=== PATIENT | female | born 1945 | race Two or more races ===

== ENCOUNTER 2016-03-24 23:17 | Emergency (ER) | payer MEDICARE, OTHER ==
[~2016-03-24] VITALS: Ht 157.5 cm; Wt 56.7 kg
[2016-03-24] MEDS ORDERED: NKM (23:27)
[2016-03-24 23:45] VITALS: BP 116/71
[2016-03-25] MEDS ORDERED: DEBROX15 M1 BOTH EARS (00:36)
[2016-03-25] MEDS ORDERED: ACETAMINOPHEN-1 EAC1 ORAL (00:36)
--- NOTE | 2016-03-25 00:41 | Emergency Room Report ---
History of Present Illness General Chief Complaint: Pain Source: Patient, Family Member Present Illness HPI 71 YO F with 2 complaints: 1) Right ankle pain since tonight. No trauma. No history of gout. +history of DM. Didnt take any thing for pain. No fever/chills, swelling. 2) Bilateral ear pain, decreased hearing. No associated headache, neck pain/ stiffness, ear drainage. Allergies: Coded Allergies: No Known Allergies (Unverified , 03/24/16) Patient History Past Medical History: DM Past Surgical History: none Pertinent Family History: none Social History: Denies: alcohol use, drug use, smoking Now: No Immunizations: UTD Reviewed Nursing Documentation: PMH: Agreed, PSxH: Agreed Nursing Documentation-PMH Hx Hypertension: Yes Hx Diabetes: Yes Review of Systems All Other Systems: negative except mentioned in HPI Physical Exam Vital Signs Date Time Temp Pulse Resp B/P Pulse Ox O2 Delivery O2 Flow Rate FiO2 03/24/16 23:22 98.2 82 14 126/67 95 Room Air Sp02 EP Interpretation: reviewed, normal General Appearance: normal inspection, well appearing, no apparent distress, alert, GCS 15, non-toxic Head: normocephalic, atraumatic Eyes: bilateral eye EOMI, bilateral eye PERRL ENT: normal ENT inspection, uvula midline, moist mucus membranes, other - Bilateral impacted cerumen. Decreased hearing. Neck: normal inspection, full range of motion, supple, no bony tend Respiratory: normal inspection, lungs clear, normal breath sounds, no respiratory distress, no retraction, no wheezing Cardiovascular #1: regular rate, rhythm, no edema Gastrointestinal: normal inspection, normal bowel sounds, non tender, soft, no guarding, no hernia Genitourinary: no CVA tenderness Musculoskeletal: normal inspection, back normal, normal range of motion, Lan' s Sign negative, other - Right ankle: Mild ttp throughout. No focal ttp. No obvious trauma, infection or swelling. 2++ dorsalis pedis pulse. Neurologic: normal inspection, alert, oriented x3, responsive, cadastral engineer III-XII nml as tested, motor strength/tone normal, cerebellar normal, normal gait, speech normal Psychiatric: normal inspection, judgement/insight normal, mood/affect normal Skin: normal inspection, normal color, no rash Medical Decision Making Diagnostic Impression: Primary Impression: Pain Additional Impressions: Impacted cerumen of both ears Right ankle pain Qualified Codes: M25.571 - Pain in right ankle and joints of right foot ER Course Right ankle pain: Xrays unremarkable for effusion, fx, disclocation. Improved s/ p analgesia. Fingerstick WNL. Decreased hearing, pain, likely d/t impacted cerumen. Rx Debrox DC home Other X-Ray Diagnostic Results Other X-Ray Diagnostic Results : X-Ray Ordered: Right ankle EP Interpretation: Yes Findings: no fractures, no dislocation, no soft tissue swelling Number of Views: 3 Last Vital Signs Date Time Temp Pulse Resp B/P Pulse Ox O2 Delivery O2 Flow Rate FiO2 03/24/16 23:22 98.2 82 14 126/67 95 Room Air Status: improved Disposition: HOME, SELF-CARE Condition: Improved Scripts Acetaminophen With Codeine (T#3) (TYLENOL #3 TAB*) Y Tab 1 TAB ORAL Q8H Y for For Pain, #30 TAB Prov: MAGDALENO ORTIZ M.D. 03/25/16 Carbamide Peroxide (DEBROX) 15 Ml Drops 10 DROP BOTH EARS TWICE A DAY for 4 Days, ML 0 Refills Prov: MAGDALENO ORTIZ M.D. 03/25/16 Patient Instructions: Cerumen Impaction, Ankle Pain Additional Instructions: - Take T#3 as needed for ankle pain; also apply ice to area of pain - Use Debrox to remove wax from ears - Follow up with primary care doctor in 2-3 days MAGDALENO ORTIZ M.D. Mar 25, 2016 00:41
[2016-03-25] MEDS ORDERED: Tylenol #3 tab (300mg/30mg) ORAL ONE (00:45)
[2016-03-25 01:03] VITALS: BP 118/73
[2016-03-25 01:06] VITALS: BP 118/73
--- NOTE | 2016-03-25 09:06 | Diagnostic Imaging Report ---
Indications: Right ankle pain Technique: 3 views of the right ankle Findings: Comparison: None. No fracture, dislocation, joint space widening or effusion, lytic destruction, periosteal reaction, surrounding soft tissue swelling, or other acute changes are demonstrated. Small spur emanates from the posterior aspect of the calcaneus in region of choice tendon insertion. Scattered arterial mural calcifications are present. No additional deformity, alignment abnormality, arthritic change,, or other chronic changes are demonstrated. IMPRESSION: No evidence of acute abnormality of the right ankle Calcaneal enthesophyte Arteriosclerosis.
== END 2016-03-25 01:08 | disposition home or self-care (01) ==
LOC: EMR 23:50
DX: M25.571 Pain in right ankle and joints of right foot (principal); H61.23 Impacted cerumen, bilateral; I10 Essential (primary) hypertension; E11.9 Type 2 diabetes mellitus without complications
CPT/HCPCS: 82962; 99284

== ENCOUNTER 2016-06-12 22:24 | Emergency (ER) | payer MEDICARE, OTHER ==
[~2016-06-12] VITALS: Ht 157.5 cm; Wt 57.6 kg
[~2016-06-12 22:24] MED LIST: ACETAMINOPHEN-1 EAC1 ORAL; DEBROX15 M1 BOTH EARS; NKM
[2016-06-12 22:58] VITALS: BP 127/66
[2016-06-12] MEDS ORDERED: Cephalexin 500mg cap ORAL ONE (23:30)
[2016-06-12] MEDS ORDERED: BACTRIM DS TAB1 EAC1 ORAL (23:32)
[2016-06-12] MEDS ORDERED: SILVADENE20 GM TP (23:32)
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
[2016-06-12 23:55] VITALS: BP 120/74
== END 2016-06-12 23:55 | disposition home or self-care (01) ==
LOC: EMR 23:44
DX: T23.321A Burn of third degree of single right finger (nail) except thumb, initial encounter (principal); L03.011 Cellulitis of right finger; E11.9 Type 2 diabetes mellitus without complications; I10 Essential (primary) hypertension; X08.8XXA Exposure to other specified smoke, fire and flames, initial encounter; Y93.9 Activity, unspecified; Y92.9 Unspecified place or not applicable
CPT/HCPCS: 99284